=== PATIENT | male | born 1990 | race Caucasian/White ===

== ENCOUNTER 2018-05-05 14:06 | Emergency (ER) | payer OTHER ==
[~2018-05-05] VITALS: Ht 175.3 cm; Wt 91.8 kg
[2018-05-05 14:16] VITALS: BP 139/92
== END 2018-05-05 15:41 | disposition home or self-care (01) ==
LOC: EMS 14:06
DX: T81.31XA Disruption of external operation (surgical) wound, not elsewhere classified, initial encounter (principal); J45.909 Unspecified asthma, uncomplicated
CPT/HCPCS: 99281